=== PATIENT | male | born 1935 | race Caucasian/White ===

== ENCOUNTER 2021-05-08 18:17 | Emergency (ER) | payer OTHER, BC ==
[~2021-05-08] VITALS: Ht 177.8 cm; Wt 72.6 kg
[2021-05-08 19:22] LABS: URINE BILIRUBIN NEGATIVE (Negative); URINE BLOOD TRACE (Negative); URINE CLARITY SL CLOUDY; URINE COLOR YELLOW; URINE GLUCOSE-RANDOM* NEGATIVE (Negative); URINE KETONES NEGATIVE (Negative); URINE NITRITE-REFLEX NEGATIVE (Negative); URINE PROTEIN (DIPSTICK) NEGATIVE (Negative); URINE SPECIFIC GRAVITY >= 1.030 (1.005-1.035); URINE UROBILINOGEN 0.2 E.U./dl (0.2-1.0)
[2021-05-08 19:23] LABS: URINE LEUKOCYTES-REFLEX 2+ (Negative)
[2021-05-08 19:34] LABS: SQUAMOUS 0-3 Few /LPF (0-3)
[2021-05-08 19:35] LABS: MUCUS 4-6 Moderate strn/LPF (None Seen); URINE RBC 1-2 Rare /HPF (NONE SEEN); URINE WBC-REFLEX >25 Many /HPF (0-5)
[2021-05-08 20:00] LABS: HEMATOCRIT 22.8 % (42.0-52.0); HEMOGLOBIN 7.1 gm/dL (14.0-18.0); MCH 26.6 pg (26.0-34.0); MCHC 31.3 g/dL (28.0-37.0); MCV 84.8 fL (80.0-100.0); PLATELET COUNT 183 thou/uL (150-400); RBC 2.68 mil/uL (4.50-6.00); RDW 21.1 % (10.5-14.5)
[2021-05-08 20:15] LABS: CALCIUM 8.2 mg/dL (8.5-10.1); CREATININE 1.1 mg/dL (0.7-1.3); POTASSIUM 4.7 mmol/L (3.5-5.1)
[2021-05-08 20:22] LABS: ALBUMIN 2.8 g/dL (3.4-5.0); TOTAL BILIRUBIN 0.2 mg/dL (0.2-1.0); TOTAL PROTEIN 6.3 g/dL (6.4-8.2)
[2021-05-08 20:27] LABS: ABSOLUTE NEUTROPHILS 2.3 thou/uL (1.4-8.2)
[2021-05-08 20:30] LABS: ANISOCYTOSIS 2+; PLATELET ESTIMATE NORMAL; POIKILOCYTOSIS 1+
[2021-05-08] MEDS ORDERED: CEPHALEXIN500 MG PO (20:48)
[2021-05-08 20:59] VITALS: BP 147/51
--- NOTE | 2021-05-10 09:23 | EKG ---
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 05/10/21 0923 36 36 Gary Thrasher MD, FACC /EPI
== END 2021-05-08 21:10 | disposition home or self-care (01) ==
LOC: ER 18:17
PROVIDERS: Emergency Medicine
DX: N39.0 Urinary tract infection, site not specified (principal); Z20.822 Contact with and (suspected) exposure to COVID-19; R41.82 Altered mental status, unspecified; F11.20 Opioid dependence, uncomplicated

== ENCOUNTER 2021-05-10 15:46 | Emergency (ER) | payer OTHER, BC ==
[~2021-05-10] VITALS: Ht 177.8 cm; Wt 72.6 kg
[~2021-05-10 15:46] MED LIST: CEPHALEXIN500 MG PO
[2021-05-10 17:09] LABS: ABSOLUTE NEUTROPHILS 2.4 thou/uL (1.4-8.2); BASOPHILS 0.3 % (0.0-2.0); EOSINOPHILS 1.3 % (0.0-3.0); HEMATOCRIT 25.4 % (42.0-52.0); HEMOGLOBIN 7.8 gm/dL (14.0-18.0); LYMPHOCYTES 32.4 % (24.0-44.0); MCH 26.5 pg (26.0-34.0); MCHC 30.9 g/dL (28.0-37.0); MCV 85.6 fL (80.0-100.0); MONOCYTES 4.4 % (1.0-8.0); PLATELET COUNT 188 thou/uL (150-400); POLYS 61.6 % (36.0-66.0); RBC 2.97 mil/uL (4.50-6.00); RDW 21.1 % (10.5-14.5); WBC 3.9 thou/uL (4.0-11.0)
[2021-05-10 17:13] LABS: ANION GAP 7 mmol/L (7-16); BUN 13 mg/dL (7-18); CALCIUM 8.5 mg/dL (8.5-10.1); CHLORIDE 109 mmol/L (98-107); CO2 28 mmol/L (21-32); CREATININE 1.1 mg/dL (0.7-1.3); GLUCOSE 126 mg/dL (74-106); POTASSIUM 4.9 mmol/L (3.5-5.1); SODIUM 144 mmol/L (136-145)
[2021-05-10 17:23] LABS: SGOT 20 U/L (15-37); SGPT 26 U/L (16-63); TOTAL BILIRUBIN 0.3 mg/dL (0.2-1.0); TOTAL PROTEIN 6.6 g/dL (6.4-8.2); TROPONIN-I <0.06 ng/mL (<0.06)
[2021-05-10] MEDS ORDERED: METFORMIN HCL500 MG PO (18:19)
[2021-05-10] MEDS ORDERED: ALPRAZOLAM XR3 MG PO (18:19)
[2021-05-10] MEDS ORDERED: XARELTO2.5 MG PO (18:19)
[2021-05-10] MEDS ORDERED: SIMVASTATIN80 MG PO (18:20)
[2021-05-10] MEDS ORDERED: ARICEPT10 M1 PO (18:20)
[2021-05-10] MEDS ORDERED: NAMENDA 10 MG T10 MG PO (18:20)
[2021-05-10] MEDS ORDERED: TOPROL XL50 MG PO (18:20)
[2021-05-10] MEDS ORDERED: VITAMIN D325 MC5 PO (18:21)
[2021-05-10 18:29] LABS: URINE BILIRUBIN NEGATIVE (Negative); URINE BLOOD NEGATIVE (Negative); URINE CLARITY CLEAR; URINE COLOR YELLOW; URINE GLUCOSE-RANDOM* NEGATIVE (Negative); URINE KETONES NEGATIVE (Negative); URINE NITRITE-REFLEX NEGATIVE (Negative); URINE PROTEIN (DIPSTICK) NEGATIVE (Negative); URINE SPECIFIC GRAVITY 1.025 (1.005-1.035); URINE UROBILINOGEN 0.2 E.U./dl (0.2-1.0)
[2021-05-10 18:40] LABS: URINE LEUKOCYTES-REFLEX 1+ (Negative)
[2021-05-10 18:50] LABS: BACTERIA-REFLEX 1-9 Few /HPF (None Seen); CASTS None Seen /LPF (None Seen); CRYSTALS None Seen /LPF (None Seen); SQUAMOUS 0-3 Few /LPF (0-3); URINE RBC 1-2 Rare /HPF (NONE SEEN); URINE WBC-REFLEX 6-15 Few /HPF (0-5)
[2021-05-10 19:16] LABS: ANISOCYTOSIS 2+; PLATELET ESTIMATE NORMAL
[2021-05-10 20:07] VITALS: BP 132/46
--- NOTE | 2021-05-11 09:53 | EKG ---
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
== END 2021-05-10 20:08 | disposition admitted as inpatient to this hospital (09) ==
LOC: ER 15:46
PROVIDERS: Nurse Practitioner Family
DX: F32.9 Major depressive disorder, single episode, unspecified (principal); Z20.822 Contact with and (suspected) exposure to COVID-19; F03.91 Unspecified dementia, unspecified severity, with behavioral disturbance; Z79.899 Other long term (current) drug therapy; Z79.84 Long term (current) use of oral hypoglycemic drugs

== ENCOUNTER 2021-05-10 18:57 | Inpatient (IN) | payer OTHER, BC ==
[~2021-05-10] VITALS: Ht 180.3 cm; Wt 70.8 kg
[~2021-05-10 18:57] MED LIST changes: +ALPRAZOLAM XR3 MG PO; +ARICEPT10 M1 PO; +METFORMIN HCL500 MG PO; +NAMENDA 10 MG T10 MG PO; +SIMVASTATIN80 MG PO; +TOPROL XL50 MG PO; +VITAMIN D325 MC5 PO; +XARELTO2.5 MG PO
[2021-05-10 21:04] VITALS: BP 167/68
--- NOTE | 2021-05-11 04:28 | NUR ---
ADMISSION NOTE 05/10/212029 PATIENT ARRIVES TO THE UNIT VIA WHEELCHAIR FROM THE EMERGENCY DEPARTMENT. PATIENT AT THIS TIME IS CALM AND DRESSED APPROPRIATELY. PATIENT CONFUSED LOOKING FOR HIS AND ASKING IF HE CAN GO OUTSIDE. ORIENTED TO SELF ONLY. STAFF ORIENTED PATIENT TO THE SURROUNDINGS AND THAT HE WAS IN THE HOSPITAL. PATIENT EXHIBITS ANXIETY AND RAPID THOUGHTS. UNABLE TO RETAIN INFORMATION GIVEN TO HIM. REPETITIVELY ASKS THE SAME QUESTIONS. WHERE IS HIS ? DID THE GOVERNMENT BRING HIM HERE? CAN HE USE THE PHONE TO CALL HIS CONGRESSMAN. PATIENT PACED THE FLOOR FOR SOME TIME BEFORE FINALLY SITTING FOR VITAL SIGNS. PATIENT WAS CHANGED INTO SHIRT AND PANTS THAT ARE UNIT APPROPRIATE. UNABLE TO UNDERSTAND THAT HE WILL BE ASSESSED HERE BY A MEDICAL PROVIDER. PATIENT DOES DENY ANY HI/SI IDEATION. PT SKIN INTACT WITH NO OPEN AREAS. HE DOES HAVE SUPERFICIAL SCRATCH TO HIS R ARM AND R ASHRAF. WILL CONTINUE TO MONITOR FOR CHANGE IN PATIENT STATUS.
[2021-05-11 06:19] LABS: CHOLESTEROL 114 mg/dL (<200); HDL CHOLESTEROL 38 mg/dL (>40); LDL CHOLESTEROL 57 mg/dL (<100); TRIGLYCERIDE 98 mg/dL (<150); VLDL 20 mg/dL (<40)
[2021-05-11 06:20] LABS: SERUM ASSESSMENT Clear
[2021-05-11 09:35] VITALS: BP 149/60
--- NOTE | 2021-05-11 12:16 | NUR ---
UPON INITIAL ASSESSMENT THIS AM AT 0745 WAS AT DESK EVERY 2-3 MINUTES ASKING TO CALL HIS -BEGINS TO RAISE VOICE AND YELL AT STAFF WITH ATTEMPTS TO REDIRECT HAD BEEN TOLD SEVERAL TIMES THAT HE HAD ALREADY TALKED TO HER SEVERAL TIMES AND PER HER REQUEST NO ADDITIONAL PHONE CALLS TO HER TO ALLOW HER TO GET SOME SLEEP. SARCASTIC AND ARGUMENTATIVE WHEN ASKED TO GO SIT IN THE DAY ROOM "ARE YOU GOING TO CALL THE POLICE AND HAVE ME ARRESTED" FROM APPROX [phone] NOTED TO BECOME INCREASINGLY MORE [id number] ON EXIT DOORS AND ENTERING BEHIND NURSES STATION ATTEMPTING TO GRAB THE PHONE-YELLING OUT "[id number] KIDNAPPING" OFFERED AM MEDS INCLUDING PO PRN XANAX BUT HE REFUSES STATING "I DON'T KNOW WHAT THOSE ARE DO YOU"REFUSES TO TAKE AND STATES TO THIS NURSE WITH CLENCHED FIST "YOU HAD BETTER LET ME OUT OF HERE OR YOU WILL HAVE A BLACK EYE" MATHEUS BULLOCK CONTACTED AND O RECEIVED-[id number] GIVEN IM IN RIGHT DELTOID AT 0910-OFFERS MINIMAL RESISTANCE-HAS REMAINED IN ROOM REQUESTED BY STAFF
[2021-05-11 20:10] VITALS: BP 123/54
[2021-05-11 20:14] VITALS: BP 123/54
[2021-05-12 00:05] LABS: GLYCOHEMOGLOBIN (HGB A1C) 6.5 % (4.8-5.6)
--- NOTE | 2021-05-12 00:36 | NUR ---
PATIENT CARE WAS RESUMED AT 1900. HE IS ALERT AND CONFUSSED. HE AMBULATES AND ABLE TO VERBALIZED HIS CONCERN. LUNGS ARE CLEAR,BS ACTIVE X 4 QUAD. HE DENIES PAINS/SI/AVH/HI. HE TOOK HIS MEDS WITHOUT ANY CONCERN. CONTINENT OF BOWEL AND BLADDER. NO SKIN ISSUES NOTED THIS SHIFT. BED IS LOW, LOCKED AND ALARMED
[2021-05-12 09:17] VITALS: BP 162/47
--- NOTE | 2021-05-12 16:21 | NUR ---
SW completed assessment and tx plan. SW team will remain available while on this unit.
[2021-05-12 19:15] VITALS: BP 153/77
--- NOTE | 2021-05-12 19:48 | NUR ---
ANXIUOS FACIAL EXPRESSION,PACING AND AT DESK FREQUENTLY WITH REPETITIVE QUESTIONS. DIFFICULT TO REDIRECT WILL BECOME SARCASTIC OPPOSITIONAL WITH ATTEMPTS TO REDIRECT AWAY FROM DESKI.E "I WON'T BE LOCKED UP IF I GO SIT DOWN IN THAT ROOM THERE" "DO I HAVE TO BAD IN BAD SHAPE LIKE THESE GUYS BEFORE YOU LET ME OUT OF THIS PLACE" EXIT SEEKING RATTLING DOORS TO STAFF LOUNGE AND PEERS ROOMS. POUNDING ON SW OFFICE DOOR. XANAX 0.25MG GIVEN PO PRN X2 FOR ABOVE NOTED WITH GOOD RESULTS
--- NOTE | 2021-05-13 04:42 | NUR ---
05-12-21 CARE TRANSFERRED 1900 OBSERVED PT WALKING IN HALLWAY. LATER PT AAOX2, VSS, RR EVEN AND NONLABORED ON RA. PT DENIES PAIN AND SI/HI. PT PRESENTS ANXIOUS, BUT REMAINS CALM AND COOPERATIVE THROUGHOUT NURSING ASSESSMENT. DURING MEDICATION ADMIN PT HAD NO DIFFICULTIES TAKING MEDICATION WHOLE WITH WATER. LATER PT BED WAS ADJUSTED FOR COMFORT. PT WILL CONTINUE TO BE MONITOR PER [facility] PROTOCOL.
[2021-05-13 09:37] VITALS: BP 117/86
--- NOTE | 2021-05-13 11:16 | NUR ---
New admit to [facility] with dementia and behavioral disturbance. Hx DM. On metformin, A1C 6.5. Requires mech altered ground diet to no lower teeth. Healthy wt status, no wt loss indicated. Add carb control to current diet order. Otherwise low nutrition risk. Follow weekly wts and intake trends.
--- NOTE | 2021-05-13 16:15 | NUR ---
4:15PM - visited with pt at pt's request. Pt. expressed wanting to go "home to [facility]". The pt. has called multiple times today but does not remember calling her. The pt. states he has not seen a doctor but that he had met with a doctor in [place] that was nice. The pt. stated his car is on the street. The pt. then stated he needed his son or to pick him up as he was not feeling well. When asked what didn't feel well, the pt. stated he was sad and that he felt funny in his chest. The pt also stated no one pays attention to him because he is old. The pt. was reassured that he will receive attention and that if he needed anything to let someone know.
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
[2021-05-13 20:20] VITALS: BP 94/48
--- NOTE | 2021-05-14 06:17 | NUR ---
05-14-21 CARE TRANSFERRED 1899 OBSERVED PT WALKING IN HALLWAY. LATER PT AAOX1, VSS, RR EVEN AND NONLABORED, PT DENIES PAIN AND SI/HI. PT PRESENTS CONFUSED BUT IS EASILY REDIRECTED AND REORINENTAED, PT DID REMAIN COOPEATIVE DURING NURSING ASSESSMENT. LATER OBSERVED/HEARD PT CALLING OUT FOR HIS HOMERO, PT WAS REORIENATED AGAIN AND PT WAS RETURNED TO BED, BED WAS ADJUSTED FOR COMFORT. PT HAD NO DIFFIUCLTING TAKING MEDICATION WHOLE WITH WATER. LATER NOTED PT RESTING WITH EYES CLOSED. PT WILL CONTINUE TO BE MONITOR PER [facility] PROTOCOL.
[2021-05-14 09:36] VITALS: BP 144/74
--- NOTE | 2021-05-14 11:09 | NUR ---
1109 RESUMMED CARE FROM OVERNIGHT SHIFT THIS AM, PATIENT IN DAY ROOM WALKING AROUND. PATIENT IS ALERT TO SELF AND PLACE PATIENT CONSTANTLY ASKED WHEN HE IS LEAVING. PATIENT HAS NOT DISPLAYED ANY BEHAVIORS HE IS SOMETIMES CONFUSED. PATIENTS ABDOMEN SOFT BOWEL SOUNDS PATIENTS LUNGS CLEAR PATIENT DENIES SI/HI/AH/VH AT PRESENT. PATIENT PARTICPATES IN GROUPS WILL CONTINUE TO MONITOR PATIENT FOR SAFETY AND BEHAVIORS.
[2021-05-14 11:30] VITALS: BP 144/74
[2021-05-14 19:24] VITALS: BP 121/42
[2021-05-14 19:57] VITALS: BP 140/70
[2021-05-14 20:15] VITALS: BP 140/70
--- NOTE | 2021-05-15 02:18 | NUR ---
PATIENT WAS UP IN ROOM SLEEPING IN BED WHEN I ASSUMED CARE OF PATIENT AT 1900. HIS HOMERO CALLED TO SPEAK WITH HIM. I EXPLAINED I WOULD HAVE HIM CALL HER IF HE AWOKE BEFORE 10PM. PATIENT CAME OUT OF ROOM AND CALLED AROUND 2000 TONIGHT. HE IS A/0X1. HE WALKS WITH A STEADY GAIT. HE IS CONFUSED AND WANDERS ALOT. HE REPEATS THE SAME QUESTIONS. WHERE'S HOMERO? CAN I GO HOME TONIGHT? PATIENT HAD HS SNACK AND TOOK HS MEDS WHOLE WITHOUT INCIDENT. HE WENT BACK TO BED BUT WAS BACK UP AROUND 2300 WANDERING THE HALLS AND GOING INTO PATIENT'S ROOMS LOOKING FOR HOMERO. HELPED HIM BACK TO BED AND HE AWOKE AT 2AM AND WANDERED INTO A FEMALE PATIENTS ROOM WAKING HER UP. SHE YELLED FOR HIM TO GET OUT. PT WAS ASSISTED OUT OF ROOM. HE APOLOGIZED AND SAID HE WAS IN THE WRONG ROOM. HE WAS LOOKING FOR HIS GIRLFRIEND'S ROOM. PATIENT SAT IN THE DINING ROOM FOR ABOUT 20 MINUTES AND THEN WAS ASSISTED BACK TO HIS ROOM. HE WANTED TO KNOW WHICH ROOM HIS GIRLFRIEND WAS IN. I EXPLAINED SHE WAS NOT HERE AND THAT HOMERO WAS AT HOME. PATIENT GIVEN WATER TO DRINK AND ASSISTED HIM WITH HIS COVERS AND PATIENT IS RESTING IN BED AT THIS TIME. HE DENIES SI/HI/AVH. HE IS REDIRECTABLE. HE HAS BEEN CALM AND COOPERATIVE. WANDERS AND IS INTRUSIVE AT TIMES. BED IN LOW POSITION. PT IS NOT A FALL RISK. ROUTINE ROUNDS TO ASSESS SAFETY AND STATUS OF PT.
[2021-05-15 09:29] VITALS: BP 134/92
--- NOTE | 2021-05-15 14:50 | NUR ---
PATIENT WAS UP, AND OUT ON THE UNIT, HE AMBULATES WITH SLOW STEADY GAIT. PATIENT IS ALERT, FORGETFUL, AND PLEASANTLY CONFUSED, REDIRECTABLE THOUGH. PATIENT REQUESTED TO CALL FIRST THING THIS MORNING, CALLED, AND HE SPOKE WITH HER FOR ABOUT 20 MINUTES, HE CONTINUE TO COSTANTLY REQUEST FOR CALL . PATIENT TOOK MORNING MEDICATION WHOLE WITHOUT DIFFICULTY, HE IS EATING MEALS, AND DRINKING FLUID WELL. PATIENT DENIES SUICIDAL/HOMICIDAL IDEATION, HE DENIES DEPRESION, ANXIETY , AND PAIN. NO AGITATION OR AGGRESSIVE BEHAVIOR NOTED AT THIS TIME. PATIENT PARTICIPATES IN GROUP THERAPY. AFFECT IS FLAT/BLUNTED, MOOD IS DEPRESSED. NO SIGN OF ACUTE DISTRESS NOTED AT THIS TIME, WILL CONTINUE TO REDIRECT, AND MONITOR FOR SAFETY.
--- NOTE | 2021-05-15 16:00 | NUR ---
Dr. Torres and typewriter assembler had a telephonic family meeting with patient and son (Jaun). Dr. Torres reviewed prognosis and reccomendation for care after inpatient discharge. Family believes that they can provide care in the home by utilizing adult day care during the day and private duty for a certain # of hours at night. Dr. Torres was in agreement that they might be able to make this arrangement work, but warned that he may need a higher level of care. Family acknowledged that he may be correct. Family was accepting of medication plan and had no further questions.
[2021-05-15 19:45] VITALS: BP 106/55
[2021-05-15 20:20] VITALS: BP 106/55
[2021-05-16 09:30] VITALS: BP 111/88
[2021-05-16 15:45] VITALS: BP 121/70
--- NOTE | 2021-05-16 16:13 | NUR ---
Patient's called to let us know that she and her son are going to look at memory care facilities tomorrow. Also going to check out some adult day care facilities in their area. beginning to process that she may not be able to care for him at home.
--- NOTE | 2021-05-16 17:44 | NUR ---
Alert and orientated x 2-3. Denies SI/HI. Slightly anxious this AM concerned about his but once he spoke with her he was much calmer. Calm, compliant and cooperative. Breath sounds clear. Reg HR auscultated. Color pink with brisk capillary refill and palpable peripheral pulses. Independent with voiding. Active bowel sounds over soft, flat abdomen. Ambulates with regular, steady gait. called for update. No s/o distress.
[2021-05-16 19:50] VITALS: BP 153/82
[2021-05-16 20:10] VITALS: BP 153/82
--- NOTE | 2021-05-17 00:57 | NUR ---
PATIENT CARE WAS RESUMED AT 1900. HE IS ALERT AND ORIENTED. ABLULATES AND VERY CONFUSED. HE IS CONTINET OF BOWEL AND BLADDER. HE WAS CONCERNED ABOUT BUT HE CALMED DOWM BEFORE ASSESSMENT TIME. ABLE TO VERBALIZE NEEDS.DENIES PAINS /SI.AVH/HI. HE TOOK HIS MEDS WITHOUT ANY COONCERNS. BS ACTIVE X4 QUADS. LUNGS ARE CLEAR AND ABDOMEN IS SOFT NONE TENDER. PATIENT IS RESTING CALM IN BED. BED IS LOW, ALARMED AND LOCKED.. Q 12 MINITES CHECK IS ONGOING CONTINUE CARE
[2021-05-17 09:17] VITALS: BP 131/78
--- NOTE | 2021-05-17 09:46 | NUR ---
Alert and orientated to person, place. Unable to state time. Denies SI/HI. States she did not sleep at all last night. Denies pain and refuses lidocaine patch today. Breath sounds clear. Reg HR auscultated. Color pink with brisk capillary refill and palpable peripheral pulses. Yellow urine per toilet. Active bowel sounds over soft, rounded abdomen. States last BM was 3 days ago. Ulcer to R heel cleaned with NS and betadine applied. Ambulating with regular, steady gait. Calm and compliant with meds. Currently speaking with Dr. Torres. Hyperglycemic over past 24 hrs 178-311. Dr. Prasad notified, states he will speak to Dr. Torres r/t discharge orders. Report called to [facility] Benedict, spoke with Jatin Shields. Also spoke with Chioma LIN via phone, agrees with transfer.
--- NOTE | 2021-05-17 12:01 | NUR ---
RT Progress Note- Ganga' has been present in the milieu each day during his admission. He wanders the unit during unscheduled time, often asking to use the telephone to call his . He is easily engaged in conversation and redirects well during these times. He has been present in most programming on the unit and requires direct cueing to engage as he easily gets off task and reverts back to requesting the telephone or a ride somewhere. RT team will continue to engage patient in unit programming
--- NOTE | 2021-05-17 13:13 | NUR ---
Alert and orientated to name only. Denies SI/HI. Frequent requests to find transportation, wants to leave, notify parents to come get him. States he has rib pain on L side when he presses on it. Decreased from 5-1 with tylenol. Breath sounds clear. Reg HR auscultated. Color pink with brisk capillary refill and palpable peripheral pulses. Active bowel sounds over soft, rounded abdomen. Yellow urine per toilet. Currently in group. Wants to call after group.
[2021-05-17 20:20] VITALS: BP 132/97
[2021-05-17 21:38] VITALS: BP 132/97
--- NOTE | 2021-05-17 23:46 | NUR ---
Pt is ambulatory ad josee, Alert to self, very pleasant, wants to go home with spouse, constantly worries that spouse doesn't know where he is. Pt did talk with spouse on the phone this evening. Attempt to get pt to lay down he did for about 30 min and then was back up and he decided he wanted to sleep in dayroom. This nurse talked with pt for awhile. He is from [place] in [facility], he likes to fish and his eyes lit up talking about fishing and his hometown. Denies SI/HI/AH/VH, easily redirected. HRR, Lungs clear, Abd soft non tender. will continue to monitor through out shift.
[2021-05-18 10:48] VITALS: BP 132/97
[2021-05-18 12:29] VITALS: BP 121/63
[2021-05-18 19:40] VITALS: BP 135/92
--- NOTE | 2021-05-19 05:19 | NUR ---
05-18-21 CARE TRANSFERRED 0 OBSERVED PT SITTING IN DAY ROOM ON COUCH SOCIALIZING WITH PEERS. LATER PT AAOX1, VSS, RR EVEN AND NONLABORED ON RA. PT DENIES SI/HI AND PAIN. PT MAIN CONCERN IS FOR HIS HOMERO AND GETTING BACK HOME TO HOMERO. PT PRESENTS CONFUSED BUT REMAIN CALM AND COOPEATIVE THROUGHOUT NURSING ASSESSMENT. PT IS EASILY REORIENTATED TO PLACE. DURING MEDICATION ADMIN PT HAD NO DIFFICULTIES TAKING MEDICATION WHOLE WITH WATER. PT WILL CONTINUE TO BE MONITOR PER [facility] PROTOCOL.
[2021-05-19 09:42] VITALS: BP 110/56
--- NOTE | 2021-05-19 12:28 | NUR ---
Phone call to Mrs. Paredes. Mrs. Paredes and her son have explored [facility] for the pt. and really like it. Mrs. Paredes states [facility] is close to the home and also has a Memory Care facility should the pt. need it. In addition to this, Mrs. Paredes is looking into home health for the pt, a half day, 3 days a week. Mrs. Paredes is open to increasing that time. Mrs. Paredes asked if that was reasonable in caring for the pt. The administrator social welfare expressed concern with the level of supervision the pt will require. The administrator social welfare also expressed the need for Mrs. Paredes to ensure that she is taking care of herself in the process and realistic of what she is able to provide as it would not be beneficial for her or the pt. for her to not be functioninig at her best.
--- NOTE | 2021-05-19 12:51 | NUR ---
PATIENT CARE ASSUMED 0700 - PATIENT ALERT AND ORIENTED 1-2. CALM AND COOPERATIVE. RESPONSIVE TO QUESTIONS. NO PAIN OR DISCOMFORT WHEN ASSESSED. HEART RATE STRONG AND STEADY AND LUNGS CLEAR ON AUSCULTATION. PATIENT AMBULATORY - MAKES NEEDS KNOWN. SPOKE WITH HOMERO TO DAY - CONVERSATION WENT WELL. APPETITE GOOD - MEDICATION COMPLIANT. EASILY REDIRECTED - UNSTEADY ON FEET THIS MORNING. STATED WAS NOT SURE HIS BALANCE WAS SO OFF. WILL CONTINUE TO MONITOR PATIENT FOR SAFETY AND ADDRESS ANY CONCERNS OR CHANGES IN BEHAVIOR NEEDED.
[2021-05-19 20:12] VITALS: BP 132/47
[2021-05-19 21:00] VITALS: BP 126/58
--- NOTE | 2021-05-20 04:57 | NUR ---
05-19-21 CARE TRANSFERRED 0 OBSERVED PT SITTING IN DAY ROOM. LATER PT AAOX1, VSS, RR EVEN AND NONLABORED ON RA. PT DENIES SI/HI AND PAIN. PT PRESENTS PLESANTLY CONFUSED, CALM AND COOPERATIVE. PT REPORTS BEING CONCERNED ABOUT WHERE HOMERO HIS IS. PT IS EASILY REORIENTATED TO PLACE AND SITUATION, BUT OFTEN WILL ASK AGAIN ABOUT HIS . ASSISTED PT WILL CALL , AFTER PHONE CALL PT WAS HAPPY AND BED WAS ADJUSTED FOR COMFORT. DURING MEDICATION ADMIN PT HAD NO DIFFICULTIES WHOLE WITH WATER. LATER NOTED PT RESTING WITH EYES CLOSED, RIGHT SIDE LYING. PT WILL CONTINUE TO BE MONITOR PER [facility] ROTOCOL.
[2021-05-20 09:38] VITALS: BP 104/55
--- NOTE | 2021-05-20 09:59 | NUR ---
Followup: remains on [facility] unit. Tolerating diet well with 100% consumption of most meals. Wt stable 156-160 lb. BG well controlled. Low nutrition risk
--- NOTE | 2021-05-20 15:06 | NUR ---
HAS BEEN CONFUSED YET REDIECTABLE TODAY. NEEDS STEP BY STEP DIRECTION FOR EVEN THE MOST BASIC OF ACTIVITIES I.E. STANDING UP FROM SITTING POSITION... ORIENTED TO NAME ONLY-COMPLIENT WITH REDIRECT/SUPPORT FROM NURSING STAFF
[2021-05-20 20:28] VITALS: BP 126/31
[2021-05-20 20:45] VITALS: BP 124/58
--- NOTE | 2021-05-21 05:19 | NUR ---
05-20-21 CARE TRANSFERRED 1899. LATER PT AAOX2, VSS, RR EVEN AND NONLABORED ON RA, PT DENIES SI/HI AND PAIN. PT PRESENTS PLESANTLY CONFUSED OFTEN FORGETTING WHERE HE IS, BUT EASILY REORIENTATED AND COOPERATIVE. PT MAIN CONCERN IS FOR HIS HOMERO. PT HAS REMAINED CALM AND COOPERATIVE, NEEDS MINIMUM AMOUNT OF HELP WITH CARES. PT HAS CONSISTANTLY BEEN CONTINENT, HOWEVER UNSURE OF HIS LBM. DURING MEDICATION ADMIN PT HAD NO DIFFICULTIE TAKING MEDICATION WHOLE WITH WATER. PT DID ASK WHERE IS IS? ONCE AGAIN PT WAS EASILY REORINTATED AND CALM AND COOPERATIVE. PT WILL CONTINUE TO BE MONITOR PER [facility] PROTOCOL.
[2021-05-21 08:02] VITALS: BP 136/66
[2021-05-21 20:15] VITALS: BP 126/77
[2021-05-21 20:39] VITALS: BP 126/77
--- NOTE | 2021-05-22 04:23 | NUR ---
PATIENT CARE WAS RESUMED AT 1900. HE IS ALERT AND OREINTED TO SELF. AMBULATES AND ABLE TO VERABLIZE CONCERNS. HE DENIES PAINS/SI/AVH/HI. HE IS CONTINIET OF BOWEL AND BLADDER. LUNGS ARE CLEAR, BS ACTIVE X4 QUADS. ABD IS SOFT FLAT AND NONE TENDER. HE TOOK HIS MEDS WHOLE. HAS A NONE SKID SOCKS, YELLOW TOP ON. BED IS LOW, LOCKED.PATIENT CONTINUE TO TALK ABOUT GOING HOME AND GETTING OUT OF HERE. CONTINUE CARE AND MONITOR.
[2021-05-22] MEDS ORDERED: DIVALPROEX SOD500 M1 PO (08:54)
[2021-05-22] MEDS ORDERED: TRAZODONE HCL100 MG PO (08:55)
[2021-05-22 09:47] VITALS: BP 126/42
[2021-05-22 10:31] VITALS: BP 126/42
[2021-05-22 10:46] VITALS: BP 126/42
--- NOTE | 2021-05-22 13:02 | NUR ---
Assumed pt care at 0700. pt was alert and oriented to person. Assessments completed, vss. Denies SI/HI, denies pain. Calm and cooperative with care. Took meds whole, no difficulty noted. AMbulates with a steady gait. No sign of acute distress noted upon assessments. 1115 Pt was DC home to , with his belongings, D/C instrutions . D/C Instrution was given to (DPOA). Pt was transported via wheel chair to entrace exit.
--- NOTE | 2021-05-22 14:05 | NUR ---
Patient d/c'd with no issues. F/U appt. with PCP on 05-25 @ 8018. Waiting from Dr. Fernandez's office for f/u psychiatry appt. Will notify when this is accomplished. Info faxed to PCP.
--- NOTE | 2021-05-23 11:29 | NUR ---
Today received an appointment for psychiatric follow up with Dr. Caitlin Fernandez MD for psychiatry. Appt. scheduled for 06-05-21 @ 12:30. Called Kenisha and left VM
--- NOTE | 2021-05-23 20:00 | D ---
[facility] [place] [address] DISCHARGE SUMMARY Name: DAYDAY FITZGERALD Room #: 527A-A [facility] IN M.R.#: [id number] Admission: 05/10/21 Attend Phys: Tavon Torres DO Discharge: 05/22/21 Date of : 39 Report #: [id number] THIS REPORT FOR: cc: Jalil Ryan Jr., MD, Jr., Samuel D. MD Kerstein, Andrew H. DO ~ DATE OF SERVICE: 05/22/2021 INPATIENT PSYCHIATRIC DISCHARGE SUMMARY ATTENDING PSYCHIATRIST: Tavon Torres DO SCREEN TENDER: Obi Dallas M.D. DISCHARGE DIAGNOSES: Major neurocognitive disorder, likely due to Alzheimer's disease with behavioral disturbance. Medical comorbidities are as follows, urinary tract infection, treated with Keflex; diabetes mellitus, on metformin; hypertension, on metoprolol; acute myeloid leukemia in remission; coronary artery disease, status post stent; peripheral vascular disease, status post stent; gastrointestinal prophylaxis. The patient is discharging to his home where he lives with his . He will get adult daycare through the medicine facility. The patient requires 24/7 care and supervision with the agrees to provide. The patient's discharge diet is 1800 calorie diabetic diet. Aftercare for this patient has been arranged as follows; followup appointments primary care physician is 05/25/2021 at 11:45 waiting for her appointment with Dr. Caitlin Fernandez, Psychiatrist at [facility]. DISCHARGE MEDICATIONS: Metformin 500 mg oral daily for diabetes mellitus, Xarelto 2.5 mg oral twice daily for anticoagulation due to atrial fibrillation, memantine 10 mg oral twice daily for cognitive enhancement, metoprolol succinate 50 mg 1 tablet oral daily for rate control and hypertension, simvastatin 10 mg oral daily for hyperlipidemia, cholecalciferol 25 mcg oral daily for supplementation, Depakote 500 mg oral twice daily for mood stabilization, trazodone 100 mg oral at bedtime p.r.n. for sleep. The patient should return to the ER for increased swelling, edema and trouble breathing. No suicidal or homicidal ideations and his was provided with crisis suicide hotline information. Laboratories this admission, Depakote level on 05/21/2021 was 39. CBC from 05/10/2021 are H and H 7.8 and 25.4, white count 3.9, platelet count 188. Chemistry: Sodium 144, potassium 4.9, chloride 109, bicarbonate 28, anion gap 7, BUN 15, creatinine 1.1, estimated GFR 64. A1c 6.5, calcium 8.5, total bilirubin 0.3, AST 20, ALT 26, alkaline phosphatase 118. Troponin less than 0.06, total protein 6.6, albumin 3.0. Triglycerides 98. Cholesterol 114, LDL 57, HDL 38. TSH 0.922. [address] [address] DISCHARGE SUMMARY Name: DAYDAY FITZGERALD Room #: 527A-A DIS IN M.R.#: [id number] Admission: 05/10/21 Attend Phys: Tavon Torres DO Discharge: 05/22/21 Date of : 37 Report #: [id number] Urinalysis, there was some positives and it showed no growth, but patient is treated with Keflex. COVID-19 Alejandre test was negative on 05/13/2021. REASON FOR ADMISSION: An 85-year-old male with history of dementia, brought to the [facility]al [facility] unit. This was a second visit, he had been brought in a couple of days prior, sent on home for unknown reasons. He believes he is here for a job interview. reports the patient has become more confused in the last week or so. The patient will become more anxious, confused, agitated and unable to redirect him. Recently lost their son, becomes easily verbally aggressive. He sees psychiatrist, Dr. Silvestre also being treated for acute myeloid leukemia. HOSPITAL COURSE: The patient was admitted to Geriatric Psychiatry Unit. The patient had pretty positive response to treatment. Depakote was initiated, titrated to 500 mg twice a day. other home meds were continued. Restraints were not required for this patient. Long-term care placement was recommended for the patient- wanted to go with adult day care only. On the day of discharge, the patient vital signs temperature 36.6, pulse 80, respirations 18, BP 126/42. BMI is 21.8. MENTAL STATUS EXAMINATION: Frail, ill, thin, male, wearing glasses and street clothes. Well-developed, somewhat ill-appearing male. Attention, concentration limited. Speech normal in rate. Thought process: Linear and goal oriented. mood/affect- happy, congruent, euthymic Thought content focused on discharge at bedside. He denied auditory or visual type hallucinations. Insight and judgment were limited. Mood and affect were congruent, euthymic. Fund of knowledge is diminished. PROGNOSIS: Guarded given age of 85 having a neurodegenerative disorder. <ELECTRONICALLY SIGNED> By: Tavon Torres DO 05/23/211999 23 43 Tavon Torres DO /nt
== END 2021-05-22 11:15 | disposition home or self-care (01) | DRG 57 ==
LOC: SBH 18:57
PROVIDERS: Nurse Practitioner Family; ADMIT Psychiatry & Neurology Psychiatry; ATTEND Psychiatry & Neurology Psychiatry
DX: G30.9 Alzheimer's disease, unspecified (principal); F02.81 Dementia in other diseases classified elsewhere, unspecified severity, with behavioral disturbance; N39.0 Urinary tract infection, site not specified; C92.00 Acute myeloblastic leukemia, not having achieved remission; E11.51 Type 2 diabetes mellitus with diabetic peripheral angiopathy without gangrene; E78.5 Hyperlipidemia, unspecified; I10 Essential (primary) hypertension; F01.50 Vascular dementia, unspecified severity, without behavioral disturbance, psychotic disturbance, mood disturbance, and anxiety; I25.10 Atherosclerotic heart disease of native coronary artery without angina pectoris; I25.2 Old myocardial infarction; Z95.5 Presence of coronary angioplasty implant and graft; Z87.891 Personal history of nicotine dependence; Z79.899 Other long term (current) drug therapy
CPT/HCPCS: 10880

== ENCOUNTER 2021-08-24 09:08 | Inpatient (IN) | payer OTHER, BC ==
[~2021-08-24] VITALS: Ht 177.8 cm; Wt 65.3 kg
--- NOTE | ~2021-08-24 | EMS ---
[address] [address] EMS Patient Care Report Name: DAYDAY FITZGERALD Room #: 203-P ADM IN M.R.#: [id number] Admission: 08/24/21 Attend Phys: Lisa Garza MD Discharge: Date of : 37 Report #: [id number] THIS REPORT FOR: //name// Report Transmitted: 08/26/2021 15:14 EMS Care Summary [place], [place]/[facility] Incident [id number] @ 08/24/2021 08:27 Incident Location [address] [id number] Patient DAYDAY FITZGERALD Male, 85 Years 1935 Patient Address [address] [place] [address] Patient History Dementia,Leukemia, Patient Allergies No known allergies, Patient Medications Donepezil, Depakote, Xarelto, Simvastatin, Trazodone, Toprol, Flomax, Metformin, Chief Complaint FEVER Disposition Transported No Lights/[place] Dispatch Reason Sick Person Transported To [facility] Narrative 28 ARRIVES TO FIND 85 Y/O M PT, WHO, PER FAMILY, IS ACTING MORE CONFUSED THAN NORMAL AND IS ALSO RUNNING A FEVER. ASSESSMENTS AND TREATMENTS NOTED. PT MOVED TO COT VIA EXTREMITY LIFT. PT MOVED TO AMBULANCE. PT TRANSPORTED. [address] [address] EMS Patient Care Report Name: DAYDAY FITZGERALD Room #: 203-P ADM IN ..#: [id number] Admission: 08/24/21 Attend Phys: Lisa Garza MD Discharge: Date of : 37 Report #: [id number] ARRIVES AT DESTINATION. PT MOVED TO ROOM IN ED. PT MOVED TO BED IN ROOM VIA DRAWSHEET METHOD. PT CARE TRANSFERRED. M528 RETURNS TO SERVICE. Initial Vitals @08:53P: 89,R: 16,BP: 117/49,Pain: 0/10,GCS: 14,CO: 12,SpO2: 95,Revised Trauma: 12, @08:57P: 86,R: 16,BP: 123/62,Pain: 0/10,GCS: 14,Temp: 99.8F,Glucose: 150,CO: 11,SpO2: 95,Revised Trauma: 12, Assessments @08:38MENTAL:Confused,Person Oriented,Place Oriented,SKIN:Hot,HEENT:LUNG SOUNDS:ABDOMEN:PELVIS//GI:EXTREMITIES:PULSE:NEURO:@08:48MENTAL:Place Oriented,Person Oriented,Confused,SKIN:Hot,HEENT:Head/Face: No Abnormalities,Eyes: No Abnormalities,Neck/Airway: No Abnormalities,LUNG SOUNDS:General: No Abnormalities,Left Upper: No Abnormalities,Right Upper: No Abnormalities,Left Lower: No Abnormalities,Right Lower: No Abnormalities,ABDOMEN:General: No Abnormalities,Left Upper: No Abnormalities,Right Upper: No Abnormalities,Left Lower: No Abnormalities,Right Lower: No Abnormalities,PELVIS//GI:No Abnormalities,EXTREMITIES:Left Arm: No Abnormalities,Right Arm: No Abnormalities,Left Leg: No Abnormalities,Right Leg: No Abnormalities,PULSE:NEURO:No Abnormalities, Impression Fever Procedures @08:53 3-Lead ECG Response: UnchangedSucceeded @08:38 ALS Assessment Response: UnchangedSucceeded @08:53 IV Therapy - Saline Lock 0cc (20 ga) Site: Forearm-Left Response: UnchangedSucceeded Timeline 08:24,Call Received 08:24,Dispatch Notified 08:27,Dispatched 08:27,En Route 08:36,On Scene 08:38,At Patient 08:38,ALS Assessment,Response: UnchangedSucceeded, 08:53,3-Lead ECG,Response: UnchangedSucceeded, 08:53,IV Therapy - Saline Lock 0cc 20 ga Site: Forearm-Left,Response: UnchangedSucceeded, 08:53,BP: 117/49 M,PULSE: 89,RR: 16 R,SPO2: 95 Ox,ETCO2: ,BG: ,PAIN: 0,GCS: 14, 08:57,BP: 123/62 M,PULSE: 86,RR: 16 R,SPO2: 95 Ox,ETCO2: ,B,PAIN: 0,GCS: 14, [facility] [address] [place] [address] EMS Patient Care Report Name: DAYDAY FITZGERALD Room #: 203-P ADM IN M.R.#: [id number] Admission: 08/24/21 Attend Phys: Lisa Garza MD Discharge: Date of : 37 Report #: [id number] 08:58,Depart Scene 09:03,At Destination 09:12,Call Closed Disclaimer v1.1 Copyright 2020 Zachary Prell This EMS Care Summary contains data elements from the applicable legal record (which may be displayed differently). It is designed to provide pertinent information for the following purposes: continuity of care, clinical quality, and state data reporting. The complete legal record is available to ED staff and administrators of the receiving hospital in [employer]'s Patient Tracker. All data is provided "as is."
[~2021-08-24 09:08] MED LIST changes: +DIVALPROEX SOD500 M1 PO; +TRAZODONE HCL100 MG PO
[2021-08-24 09:09] VITALS: BP 100/35
[2021-08-24 09:40] LABS: URINE BILIRUBIN NEGATIVE (Negative); URINE BLOOD TRACE (Negative); URINE CLARITY CLEAR; URINE COLOR YELLOW; URINE GLUCOSE-RANDOM* NEGATIVE (Negative); URINE KETONES TRACE (Negative); URINE LEUKOCYTES-REFLEX TRACE (Negative); URINE NITRITE-REFLEX NEGATIVE (Negative); URINE PROTEIN (DIPSTICK) 1+ (Negative)
[2021-08-24 09:42] LABS: HEMOGLOBIN 8.2 gm/dL (14.0-18.0); MCH 30.6 pg (26.0-34.0)
[2021-08-24 09:44] LABS: HEMATOCRIT 25.8 % (42.0-52.0); MCHC 31.8 g/dL (28.0-37.0); MCV 96.3 fL (80.0-100.0); PLATELET COUNT 59 thou/uL (150-400); RBC 2.68 mil/uL (4.50-6.00); RDW 18.4 % (10.5-14.5)
[2021-08-24 09:50] LABS: CALCIUM 8.2 mg/dL (8.5-10.1); CREATININE 0.9 mg/dL (0.7-1.3); POTASSIUM 4.5 mmol/L (3.5-5.1)
[2021-08-24 09:55] LABS: INR 1.08; PROTIME 11.7 Seconds (10.5-12.1)
--- NOTE | 2021-08-24 09:57 | EKG ---
[address] [place] [address] ELECTROCARDIOGRAM REPORT Name: DAYDAY FITZGERALD Room #: REG DELPHINE Maloney#: [id number] Admission: 08/24/21 Attend Phys: Discharge: Date of : 37 Report #: [id number] [facility] ED Test Date: 2021-08-24 Test Time: 09:43:06 Pat Name: DAYDAY FITZGERALD Department: Room: Gender: M [place]: taylor : 1935 Requested By: Jaun Ferrell Order Number: [id number] MD: Yaya Lynn Measurements Intervals [place] Rate: 84 P: 97 VA: 70 QRS: 16 QRSD: 104 T: 96 QT: 404 QTc: 478 Interpretive Statements Sinus rhythm Short VA interval Nonspecific repol abnormality, diffuse leads Compared to ECG 05/10/2021 17:00:10 Atrial premature complex(es) now present Short VA interval now present Early repolarization now present Electronically Signed On 08-24-2021 9:57:30 SHOW DOG TRAINER by Yaya Lynn [email or web address] <ELECTRONICALLY SIGNED> By: Yaya Lynn MD 08/24/21 0957 0943 0943 Yaya Lynn MD /FELIPA
[2021-08-24 09:59] LABS: ALBUMIN 2.6 g/dL (3.4-5.0); TOTAL BILIRUBIN 0.5 mg/dL (0.2-1.0); TOTAL PROTEIN 5.9 g/dL (6.4-8.2)
[2021-08-24 10:21] LABS: BACTERIA-REFLEX 1-9 Few /HPF (None Seen); CASTS None Seen /LPF (None Seen); CRYSTALS None Seen /LPF (None Seen); SQUAMOUS 0-3 Few /LPF (0-3); URINE RBC 1-2 Rare /HPF (NONE SEEN); URINE WBC-REFLEX 6-15 Few /HPF (0-5)
[2021-08-24 10:47] LABS: ABSOLUTE NEUTROPHILS 0.3 thou/uL (1.4-8.2); ANISOCYTOSIS 2+; ATYPICAL LYMPHS 5 %; HYPOCHROMASIA 2+; PLATELET ESTIMATE DECREASED
[2021-08-24] MEDS ORDERED: DIVALPROEX SOD500 M1 PO (12:54)
[2021-08-24] MEDS ORDERED: FLOMAX0.4 MG PO (12:55)
[2021-08-24] MEDS ORDERED: VITAMIN B-121000 MC2 SUBLING (12:56)
[2021-08-24] MEDS ORDERED: CENTRUM SILVER1 EACH PO (12:57)
[2021-08-24] MEDS ORDERED: AZACITIDINE PO (12:59)
[2021-08-24 15:06] VITALS: BP 120/28
--- NOTE | 2021-08-24 15:13 | NUR ---
PT'S HOMERO CALLED AT THIS TIME TO UPDATE THAT PT IS NOW IN 203 AND THAT INPT NURSE WOULD LIKE HER TO COME TO THE HOSPITAL
[2021-08-24 15:33] VITALS: BP 129/53
[2021-08-24] MEDS ORDERED: METFORMIN HCL500 M3 PO (16:49)
[2021-08-24 19:16] VITALS: BP 125/53
[2021-08-25 04:46] LABS: HEMOGLOBIN 7.2 gm/dL (14.0-18.0)
[2021-08-25 04:49] LABS: HEMATOCRIT 22.4 % (42.0-52.0); MCH 31.1 pg (26.0-34.0); MCHC 32.1 g/dL (28.0-37.0); PLATELET COUNT 44 thou/uL (150-400); RBC 2.31 mil/uL (4.50-6.00); RDW 18.4 % (10.5-14.5)
[2021-08-25 04:51] LABS: WBC 1.1 thou/uL (4.0-11.0)
[2021-08-25 05:07] VITALS: BP 126/59
[2021-08-25 06:10] LABS: ABSOLUTE NEUTROPHILS 0.3 thou/uL (1.4-8.2); ANISOCYTOSIS 2+; PLATELET ESTIMATE DECREASED
[2021-08-25 06:11] LABS: ALBUMIN 2.2 g/dL (3.4-5.0); CREATININE 0.8 mg/dL (0.7-1.3); HYPOCHROMASIA 1+; PHOSPHORUS 3.4 mg/dL (2.5-4.9); POLYCHROMASIA 1+; POTASSIUM 4.3 mmol/L (3.5-5.1); TOTAL BILIRUBIN 0.5 mg/dL (0.2-1.0); TOTAL PROTEIN 5.4 g/dL (6.4-8.2)
[2021-08-25 07:24] VITALS: BP 121/67
[2021-08-25 11:50] VITALS: BP 129/55
--- NOTE | 2021-08-25 14:26 | HC ---
[facility] [place] [address] CONSULTATION Name: DAYDAY FITZGERALD Room #: 203-P ADM IN M.R.#: [id number] Admission: 08/24/21 Attend Phys: Lisa Garza MD Discharge: Date of : 37 Report #: [id number] THIS REPORT FOR: cc: Shelby Guzman,Jalil Ryan Jr.,Medardo Arguelles MD, MD ~ DATE OF SERVICE: 08/24/2021 INFECTIOUS DISEASE CONSULTATION REASON FOR CONSULTATION: I was asked to evaluate concerning neutropenic fever. HISTORY OF PRESENT ILLNESS: The patient was an 85-year-old with longstanding diagnosis of AML, diagnosed in 1999, who has now been in remission, on chronic treatment with azacitidine. Also, has underlying diabetes and coronary artery disease. In the last 24 hours, he has had some polyuria along with confusion, which has increased from his baseline dementia. Then developed fever up to 103 degrees with mild chills. Because of such and a history of neutropenia, he was brought into the Emergency Room for further evaluation. No hypoxia. Mental status improved some with hydration. He has had a small amount of urine output. No nausea, vomiting or diarrhea. He has had no cough or sputum production. He denies any chest pain or palpitations. He has had no rash, decubiti or arthritis symptoms. Denies headache. There has been no seizure activity. No report of any adenopathy. He has had no trauma. He did fall; however, when he got up to go the bathroom, which was recorded as he slid to the floor. There was no evidence of trauma with this. He has been COVID vaccinated. No history of HIV or tuberculosis. He has had no travel. No other exposures known. REVIEW OF SYSTEMS: A 14-point review of system was negative other than what has been described above. ALLERGIES: None known. MEDICATIONS: As noted on his MAR, which were reviewed. PAST MEDICAL HISTORY: Alzheimer's dementia, AML, hypertension, hyperlipidemia, coronary artery disease, diabetes. FAMILY HISTORY: Coronary artery disease and stroke. SOCIAL HISTORY: Past smoker, no significant alcohol intake. Lives with his . PHYSICAL EXAMINATION: [facility] [address] [place] [address] CONSULTATION Name: DAYDAY FITZGERALD Room #: 203-P [facility] IN M.R.#: [id number] Admission: 08/24/21 Attend Phys: Lisa Garza MD Discharge: Date of : 37 Report #: [id number] GENERAL: Afebrile and hemodynamically stable. He was sitting up in bed, eating his dinner. He was alert and cooperative, although he was confused. He did not know where he was, he did not know the day, the year or the president. He was conversant and did follow commands appropriately. He was able to sit up in bed on his own. He is able to roll over in bed on his own. SKIN: Without rash or decubitus. No palpable adenopathy. HEENT: Eyes without scleral icterus or conjunctivitis. Mouth without mucositis. NECK: Supple with no thyromegaly or mass. LUNGS: Few crackles in the right base posteriorly. HEART: Regular, without appreciable murmur, gallop or rub. ABDOMEN: Soft and nontender, without hepatosplenomegaly or mass. GENITALIA: External genitalia without mass or lesion. Perianal examination was without lesion, mass or tenderness. RECTAL: Did not perform rectal examination due to his pancytopenia. EXTREMITIES: Without clubbing, cyanosis or edema. NEUROLOGIC: Cranial nerves intact. Strength in the upper and lower extremities was symmetric and within normal limits. LABORATORY DATA: Reviewed. MICROBIOLOGY: Reviewed. IMAGING: Chest x-ray reviewed. IMPRESSION: An 85-year-old with, 1. Neutropenic fever, bilateral pulmonary infiltrates. He is not hypoxic. 2. Acute myeloid leukemia, on azacitidine, with pancytopenia. 3. Underlying dementia, which has worsened secondary to the above. 4. Coronary artery disease. 5. Diabetes. 6. Hypertension. RECOMMENDATION: We will continue broad antibiotic coverage and obtain cultures, urine antigens and viral PCR studies. Have Oncology followup and hold further chemotherapy at this point. We will not give cranial site stimulator at this point unless Oncology feels it appropriate. We will continue IV fluid resuscitation. I have discussed with nursing staff regarding plan of care. <ELECTRONICALLY SIGNED> By: Medardo Pimentel MD 08/25/21 1426 1712 12 Medardo Pimentel MD /nt
[2021-08-25 16:03] VITALS: BP 120/55
--- NOTE | 2021-08-25 18:11 | NUR ---
Pt was pleasant and cooperative throughout shift. VS were stable and pt was aferible throughtout shift. Pt is alert and oriented to self but is forgetful and easily confused. Pt had some blood tinged urine - not a new finding - lab results showed trace blood in urine. WBC was 1.1 so pt was given a one time dose of neupogen and CBC w/diff scheduled for 4am 08/26/21. and son visited with pt throughout shift.
[2021-08-25 23:23] VITALS: BP 138/65
--- NOTE | 2021-08-26 03:08 | NUR ---
UPON SHIFT REPORT, PT AWAKE REPORTING 10/10 RECTAL PAIN, IV TO LEFT FOREARM NOTED TO BE FIELD STICK. ATTEMPTED TO PLACE ANOTHER IV, UNABLE TO ADVANCE CATHETER, WILL ATTEMPT AT LATER TIME. UPON SHIFT ASSESSMENT, PT SLEEPING, AROUSING EASILY TO VERBAL AND TACTILE STIMULATION, NOTABLY HARD OF HEARING. PT AOX2, TO PERSON AND SITUATION, OTHERWISE FORGETFUL AND CONFUSED. PT DENIES PAIN AND SOB WHILE ON ROOM AIR. PT TOLERATING PO INTAKE OF FLUIDS AND MECHANICAL ALTERED CHOPPED DIET WITHOUT ISSUE. PT WITHOUT NAUSEA OR EMESIS. PT VOIDING PER URINAL, OTHERWISE INCONTINENT. PT RESTING IN BED THROUGHOUT SHIFT, NOTED TO SHIFT INDEPENDENTLY. SENSATION INTACT, CAPILLARY REFILL LESS THAN 3SEC, PERIPHERAL PULSES PALPABLE IN ALL EXTREMITIES. PT ENCOURAGED TO NOTIFY STAFF FOR ALL NEEDS, CALL LIGHT WITHIN REACH, BED ALARM ON, BED LOCKED IN LOWEST POSITION, ROOM REMAINS NEAR NURSES STATION, PT MAINTAINED ON NEUTROPENIC PRECAUTIONS, FREQUENT MONITORING WILL CONTINUE.
[2021-08-26 03:45] VITALS: BP 136/65
[2021-08-26 06:56] LABS: HEMOGLOBIN 7.6 gm/dL (14.0-18.0)
[2021-08-26 06:59] LABS: HEMATOCRIT 23.5 % (42.0-52.0); MCH 31.1 pg (26.0-34.0); MCHC 32.3 g/dL (28.0-37.0); MCV 96.1 fL (80.0-100.0); RBC 2.45 mil/uL (4.50-6.00); RDW 18.5 % (10.5-14.5)
[2021-08-26 07:13] LABS: ALBUMIN 2.2 g/dL (3.4-5.0); TOTAL BILIRUBIN 0.7 mg/dL (0.2-1.0); TOTAL PROTEIN 5.2 g/dL (6.4-8.2)
[2021-08-26 08:10] VITALS: BP 128/48
[2021-08-26 11:20] VITALS: BP 124/58
--- NOTE | 2021-08-26 14:17 | NUR ---
Chart reviewed and case discussed with the care team. Pt is sleeping this afternoon and in protective ISO for neutropenia. He has hx of AML and is currently on chemo tx. His was here earlier today and will be back later in the afternoon. Quilting Machine Operator attempted to call her x 2 with busy signal. Pt is confused, oriented x1-2 and had recent stay on SBU in April this year. The pt's and son care for him at home and have private duty caregivers 3xwkly. He has a FWW if needed at home. The pt is being treated for UTI/pneumonia and ONC if following. Will reattempt to visit with pt's spouse regarding any HH services and or dme needs. DC plan is to return home with family/familar enviornment. Possible HH referral. His pcp is Dr. Jalil Ryan Jr. Will follow. DPOA on file.
[2021-08-26 15:00] VITALS: BP 133/53
[2021-08-26 15:29] LABS: ATYPICAL LYMPHS 3 %
[2021-08-26 15:30] LABS: ANISOCYTOSIS 1+; PLATELET COUNT 48 thou/uL (150-400); PLATELET ESTIMATE DECREASED
[2021-08-26 15:52] LABS: ABSOLUTE NEUTROPHILS 0.5 thou/uL (1.4-8.2)
[2021-08-26 15:55] LABS: WBC 1.4 thou/uL (4.0-11.0)
--- NOTE | 2021-08-26 17:01 | NUR ---
ASSESSMENT CHRTED - MEDS PER NICOLE ZAMORA DIET AND FLUIDS, NO CO'S OF PAIN OR NAUSEA - AMBUALTED WITH PHYS THERAPY TODAY WITH USE OF WALKER. UP IN THE CHAIR FOR MOST OF THE DAY. INCONTINENT OF STOOL THIS SHIFT - PT VERY CONFUSED AND IMPULSIVE GETTING OUT OF CHAIR. CAN BE VERY STRONG MINDED AT TIMES NOT BEING AGREEABLE WITH ANYTHING GOING ON AND ALSO VERY PARANOID. IN TO SEE PATIENT THIS AFTERNOON - SON WILL BE IN THIS EVENING. UP IN CHAIR EATING DINNER AT THE PRESENT TIME.
[2021-08-26 19:42] VITALS: BP 138/81
[2021-08-27] VITALS (7 sets, daily range): BP systolic 121–140; BP diastolic 40–78
--- NOTE | 2021-08-27 02:34 | NUR ---
PATIENT RESTING IN BEDSIDE CHAIR WITH SON AT BEDSIDE. PATIENT IS AATO PERSON ONLY. PATIENT HAS DIFFICULTY COMPREHENDING SIMPLE COMMANDS. STATES THAT HE IS AT A [employer]. PATIENT PULLED OUT HIS IV JUST PRIOR TO HS SHIFT ARRIVAL. NEW IV STARTED TO R FA 20G. PATIENT DENIES PAIN OR NEEDS. BED ALARM AND ALL SAFETY PRECAUTIONS ARE IN PLACE. VSS. NO S/S OF DISTRESS NOTED. WILL CONTINUE TO MONITOR FOR CHANGES IN STATUS.
[2021-08-27 04:42] LABS: HEMOGLOBIN 7.3 gm/dL (14.0-18.0); MCHC 32.4 g/dL (28.0-37.0)
[2021-08-27 04:44] LABS: HEMATOCRIT 22.5 % (42.0-52.0); MCH 31.3 pg (26.0-34.0); MCV 96.4 fL (80.0-100.0); PLATELET COUNT 45 thou/uL (150-400); RBC 2.34 mil/uL (4.50-6.00); RDW 19.1 % (10.5-14.5)
[2021-08-27 04:47] LABS: WBC 1.5 thou/uL (4.0-11.0)
[2021-08-27 13:48] LABS: ABSOLUTE NEUTROPHILS 0.3 thou/uL (1.4-8.2); ANISOCYTOSIS 1+; ATYPICAL LYMPHS 7 %; METAMYELOCYTES 1 %; NUCLEATED RBCS 1 /100WBC; POIKILOCYTOSIS SLIGHT
[2021-08-27 13:49] LABS: OVALOCYTES FEW
--- NOTE | 2021-08-27 15:20 | NUR ---
spoke with regarding home health care. Referral to [facility] for review.
--- NOTE | 2021-08-27 19:23 | NUR ---
PATIENT AMBULATED WITH THE WALKER BETWEEN THE BED AND CHAIR. HE DENIED ANY PAIN OR SOA. PATIENT'S WAS AT THE BEDSIDE FOR THE ENTIRETY OF THE DAY AND HIS SON IS WITH HIS THIS EVENING. HE IS PLEASANTLY CONFUSED AND IMPULSIVE AT TIMES. BED ALARM SET AND CALL LIGHT WITHIN REACH. WILL CONTINUE TO MONITOR.
[2021-08-28 04:11] VITALS: BP 145/64
--- NOTE | 2021-08-28 04:55 | NUR ---
Assumed pt care at 1900. Pt is alert and confused. Pt is on fall precaution Pt's confused through the night. He continued to ask for his Kenisha. Assessment completed and documented. Scheduled meds administered to pt. No acuet events through the night. Continue to monitor, no further needs at this time.
[2021-08-28 05:48] LABS: HEMOGLOBIN 7.2 gm/dL (14.0-18.0)
[2021-08-28 05:50] LABS: HEMATOCRIT 22.6 % (42.0-52.0); MCH 30.8 pg (26.0-34.0); MCHC 31.7 g/dL (28.0-37.0); MCV 97.2 fL (80.0-100.0); PLATELET COUNT 49 thou/uL (150-400); RBC 2.33 mil/uL (4.50-6.00); RDW 18.8 % (10.5-14.5)
[2021-08-28 06:18] LABS: WBC 1.7 thou/uL (4.0-11.0)
[2021-08-28 08:03] VITALS: BP 121/46
[2021-08-28] MEDS ORDERED: TRAZODONE HCL100 MG PO (11:42)
[2021-08-28] MEDS ORDERED: BAYER CHEWABLE81 MG PO (11:42)
[2021-08-28] MEDS ORDERED: PEPCID20 MG PO (11:42)
[2021-08-28 11:52] VITALS: BP 117/49
[2021-08-28] MEDS ORDERED: VANCOMYCIN1 GM/2002 IV (11:53)
[2021-08-28 13:43] LABS: ABSOLUTE NEUTROPHILS 0.2 thou/uL (1.4-8.2); ANISOCYTOSIS 2+; ATYPICAL LYMPHS 5 %; METAMYELOCYTES 3 %; NUCLEATED RBCS 1 /100WBC; POIKILOCYTOSIS SLIGHT
[2021-08-28 13:44] LABS: PLATELET ESTIMATE DECREASED
[2021-08-28 15:16] VITALS: BP 106/52
[2021-08-28 16:10] VITALS: BP 135/40
--- NOTE | 2021-08-28 16:56 | NUR ---
[facility] accepting at id. Today rec info that patient needs IV infusion in home setting. Either daptomycin in outpatient or vancomycin with HH care. discussed in detail with options. Discussed 5n eval can cont IV antibitics with therapy if accepted. Discussed in detail out patient infusion may not have HH therapy at home. Discussed home health care and home infusion with possibility of infusion out of pocket cost. does NOT want skilled care. At this time arranging outpatient infusion. Sp with Dipti with infusion clinic. She plans to sp with Dr Pimentel for outpatient infusion order for daptymacin. She rec order and faxed to [facility] for order to be placed on chart. Sp with [facility] to inquire if cannot afford home infusion cost could patient have therapy at home and cont with outpatient infusion but they declined. Sp with [facility] who reports they can accomadate if documentation that cannot afford vogel of infusion cost. Sp with Martín and faxed clinical. Dapatymacin covered at 100%. Sp with again to alert no out of pocket cost for home health and home infusion. She cont to feel more comfortable with outpatient infusion. Arranged outpatient infusion with [facility] for apt time at 1300. All in agreement with plan
[2021-08-28] MEDS ORDERED: DAPTOMYCIN350 MG IV (17:24)
[2021-08-28 17:35] VITALS: BP 135/40
--- NOTE | 2021-08-28 18:18 | NUR ---
Pt was discharged from unit at 1800 by nurse in [facility]. and son took pt home. Pt remained pleasant, A&0x1 and cooperative throughout shift. VS were stable and pt was afebrile. Pt ambulated with PT once around the unit. Pt had a good appetite and finished breakfast with some encouragement and assistance. was at bedside throughout shift. Discharge teaching was provided; was told about appointements for daptomycin infusion and she expressed understanding of the information
--- NOTE | 2021-08-29 16:15 | HC ---
[facility] [place] [address] CONSULTATION Name: DAYDAY FITZGERALD Room #: 203-P [facility] IN M.R.#: [id number] Admission: 08/24/21 Attend Phys: Lisa Garza MD Discharge: 08/28/21 Date of : 37 Report #: [id number] THIS REPORT FOR: cc: Jalil Ryan Jr., MD, Jr., Samuel D. MD Elia, Manana MD ~ DATE OF SERVICE: 08/25/2021 REFERRING PHYSICIAN: Dr. Garza. REASON FOR CONSULTATION: Febrile neutropenia, AML. HISTORY OF PRESENT ILLNESS: The patient is an 85-year-old man who has history of MDS and AML under care of Dr. Snow. He was diagnosed with AML in 2019. He was treated with intravenous cytotoxic chemotherapy. Apparently, he had a good response and has been on maintenance azacitidine since that. He was doing fine until a month ago when he was admitted to the hospital. He was started on Depakote. Since then, the patient has been having worsening pancytopenia including anemia, neutropenia and thrombocytopenia. He has not had azacitidine for 4 weeks. He had a bone marrow biopsy last week to determine cause of pancytopenia. He is admitted to the hospital now after having an episode of polyuria and altered mental status. He is admitted to the hospital, he was febrile on admission, temperature 102. He had blood cultures drawn, 2 sets are positive for gram-positive cocci, most likely Staph aureus. The patient is on antibiotics. He is neutropenic and hematology consult is requested to this. He has underlying dementia. He is not very good with the history. His son is at bedside and he is giving me history. He is feeling okay. He does not have complaints of shortness of breath or cough. He is afebrile since admission. Denies diarrhea. PAST MEDICAL HISTORY: AML as above, dementia, diabetes mellitus, hypertension, coronary artery disease and hypercholesterolemia. FAMILY HISTORY: Noncontributory. SOCIAL HISTORY: He is a past smoker, but currently does not smoke. REVIEW OF SYSTEMS: Unable to obtain detailed review of systems. PHYSICAL EXAMINATION: GENERAL: Reveals chronically ill-appearing man, not in acute distress. He is covering himself by blanket and not giving me good history. VITAL SIGNS: Blood pressure 129/55, heart rate 65, temperature 98.8, respirations 17. NECK: Supple. There is no thrush. There is no supraclavicular lymphadenopathy. [facility] [address] [place] [address] CONSULTATION Name: DAYDAY FITZGERALD Room #: 203-P [facility] IN [facility].#: [id number] Admission: 08/24/21 Attend Phys: Lisa Garza MD Discharge: 08/28/21 Date of : 37 Report #: [id number] LUNGS: Clear. ABDOMEN: Soft. EXTREMITIES: No edema. SKIN: Does not reveal rash. MENTAL STATUS: The patient is oriented to himself. LABORATORY DATA: White count 1.1, hemoglobin 7.2, platelets 44, absolute neutrophil count 0.3. Sodium 143, potassium 4.3, BUN 12, creatinine 0.8. CT of head negative for acute process. Chest x-ray negative for acute infiltrates. Blood culture positive for gram-positive cocci. ASSESSMENT AND PLAN: 1. Neutropenia, possibly medications or recurrence of AML because of febrile neutropenia. I am planning to give him one dose of Neupogen. We will check CBC in the morning. 2. Anemia, consider transfusion if hemoglobin drops less than 7.0. 3. IV access. I discussed this case with Dr. Pimentel. Dr. Pimentel is monitoring. If we can remove Port-A-Cath, the patient currently is not on IV chemotherapy. I will defer decision regarding Port-A-Cath replacement to Infectious Disease and primary care team, hospitalist team. Thank you very much for allowing me to participate in care of this patient. <ELECTRONICALLY SIGNED> By: Gema Fine MD 08/29/21 1615 1629 55 Gema Fine MD /nt
== END 2021-08-28 18:31 | disposition home health service (06) | DRG 871 ==
LOC: ER 09:08 → 2N 11:22 → EROBS 11:22 → 2N 15:15
PROVIDERS: Emergency Medicine; Internal Medicine Hematology & Oncology; Specialist; ADMIT Internal Medicine; ATTEND Internal Medicine
DX: A41.1 Sepsis due to other specified staphylococcus (principal); G93.41 Metabolic encephalopathy; E43 Unspecified severe protein-calorie malnutrition; N30.00 Acute cystitis without hematuria; C92.00 Acute myeloblastic leukemia, not having achieved remission; D61.818 Other pancytopenia; D46.9 Myelodysplastic syndrome, unspecified; Z20.822 Contact with and (suspected) exposure to COVID-19; I10 Essential (primary) hypertension; E78.5 Hyperlipidemia, unspecified; I25.10 Atherosclerotic heart disease of native coronary artery without angina pectoris; E11.51 Type 2 diabetes mellitus with diabetic peripheral angiopathy without gangrene; D70.1 Agranulocytosis secondary to cancer chemotherapy; T45.1X5A Adverse effect of antineoplastic and immunosuppressive drugs, initial encounter; E78.00 Pure hypercholesterolemia, unspecified; F51.04 Psychophysiologic insomnia; G30.9 Alzheimer's disease, unspecified; F02.80 Dementia in other diseases classified elsewhere, unspecified severity, without behavioral disturbance, psychotic disturbance, mood disturbance, and anxiety; Z95.5 Presence of coronary angioplasty implant and graft; Z95.820 Peripheral vascular angioplasty status with implants and grafts; Z87.891 Personal history of nicotine dependence; Z82.49 Family history of ischemic heart disease and other diseases of the circulatory system; Z82.3 Family history of stroke; Z79.82 Long term (current) use of aspirin; Z79.899 Other long term (current) drug therapy; Y92.89 Other specified places as the place of occurrence of the external cause
CPT/HCPCS: 10081

== ENCOUNTER → 2021-08-29 | Outpatient (CLI) | payer OTHER, BC ==
[~2021-08-29] MED LIST changes: +AZACITIDINE PO; +BAYER CHEWABLE81 MG PO; +CENTRUM SILVER1 EACH PO; +DAPTOMYCIN350 MG IV; +FLOMAX0.4 MG PO; +METFORMIN HCL500 M3 PO; +PEPCID20 MG PO; +VANCOMYCIN1 GM/2002 IV; +VITAMIN B-121000 MC2 SUBLING
[2021-08-29 13:55] VITALS: BP 141/75
[2021-08-29 14:09] LABS: MCHC 31.4 g/dL (28.0-37.0); MCV 96.7 fL (80.0-100.0); WBC 3.1 thou/uL (4.0-11.0)
[2021-08-29 14:11] LABS: HEMATOCRIT 23.3 % (42.0-52.0); HEMOGLOBIN 7.3 gm/dL (14.0-18.0); MCH 30.3 pg (26.0-34.0); PLATELET COUNT 51 thou/uL (150-400); RBC 2.41 mil/uL (4.50-6.00); RDW 19.2 % (10.5-14.5)
[2021-08-29 14:20] VITALS: BP 141/75
[2021-08-29 14:34] LABS: ALBUMIN 2.4 g/dL (3.4-5.0); CALCIUM 8.2 mg/dL (8.5-10.1); CREATININE 0.9 mg/dL (0.7-1.3); POTASSIUM 3.7 mmol/L (3.5-5.1); TOTAL BILIRUBIN 0.3 mg/dL (0.2-1.0); TOTAL PROTEIN 5.7 g/dL (6.4-8.2)
[2021-08-29 16:28] LABS: ANISOCYTOSIS 1+; METAMYELOCYTES 2 %; PLATELET ESTIMATE DECREASED
== END ==
LOC: OPONC 08-28 14:41
PROVIDERS: ATTEND Specialist
DX: D70.9 Neutropenia, unspecified (principal); A49.1 Streptococcal infection, unspecified site
CPT/HCPCS: 95000

== ENCOUNTER → 2021-08-30 | Outpatient (CLI) | payer OTHER, BC ==
[2021-08-30 13:15] VITALS: BP 124/71
== END ==
LOC: OPONC 08-28 14:38
PROVIDERS: ATTEND Specialist
DX: D70.9 Neutropenia, unspecified (principal); A41.9 Sepsis, unspecified organism
CPT/HCPCS: 95000

== ENCOUNTER → 2021-08-31 | Outpatient (CLI) | payer OTHER, BC ==
[2021-08-31 08:01] VITALS: BP 114/76
[2021-08-31 09:16] VITALS: BP 124/56
== END ==
LOC: OPONC 09:36
PROVIDERS: ATTEND Specialist
DX: D70.9 Neutropenia, unspecified (principal); R50.81 Fever presenting with conditions classified elsewhere; R78.81 Bacteremia; B95.5 Unspecified streptococcus as the cause of diseases classified elsewhere
CPT/HCPCS: 95000

== ENCOUNTER → 2021-09-01 | Outpatient (CLI) | payer OTHER, BC ==
[2021-09-01 08:28] VITALS: BP 119/49
== END ==
LOC: OPONC 09:40
PROVIDERS: ATTEND Specialist
DX: D70.9 Neutropenia, unspecified (principal); R50.81 Fever presenting with conditions classified elsewhere; R78.81 Bacteremia; B95.5 Unspecified streptococcus as the cause of diseases classified elsewhere
CPT/HCPCS: 95000

== ENCOUNTER → 2021-09-02 | Outpatient (CLI) | payer OTHER, BC ==
[2021-09-02 13:15] VITALS: BP 129/45
[2021-09-02 13:31] LABS: HEMOGLOBIN 6.6 gm/dL (14.0-18.0); RBC 2.15 mil/uL (4.50-6.00)
[2021-09-02 13:36] LABS: HEMATOCRIT 20.7 % (42.0-52.0); MCH 30.8 pg (26.0-34.0); MCV 96.3 fL (80.0-100.0); RDW 18.3 % (10.5-14.5)
[2021-09-02 13:39] LABS: PLATELET COUNT 53 thou/uL (150-400); WBC 1.4 thou/uL (4.0-11.0)
--- NOTE | 2021-09-02 13:55 | NUR ---
HERE FOR DAILY IV DAPTOMYCIN. PT REPORTS FEELING OK. DENIES N/V/DIARRHEA, MUSCLE PAIN OR ANY DISCOMFORT. REPORTS PATIENT DOING WELL. HASN'T NOTICED ANY ISSUES. NO FEVER/CHILLS, NO FALLS. APPETITE GOOD. NO NEW BRUISING, NO BLEEDING NOTED. PORT REMAINS ACCESSED, LABS DRAWN WITH BRISK BLOOD RETURN. NOTED PT'S HGB NOW <7.0. NOT CERTAIN WHO IS GOING TO MANAGE IF A BLOOD TRANSFUSION IS NEEDED. PT IS SEEING HIS ONCOLOGIST AT THE [facility]. I WILL FAX LABS TO HIS OFFICE SO THEY CAN DISCUSS POSSIBILITY OF A BLOOD TRANSFUSION. I WILL GET IN TOUCH WITH DR. SELF ABOUT THE SAME WELL TO SEE WHEN HE WOULD LIKE TO SEE THE PATIENT AND WHEN THE NEXT SET OF BLOOD CULTURES WILL BE DUE. PT TOLERATED TODAY'S TRANSFUSION WITHOUT INCIDENT. REMAINS VERY PLEASANT AND IMMEDIATELY FORGETFUL. DID REPORT HAVING A GOOD BIRTHDAY YESTERDAY. DISMISSED IN STABLE CONDITION. WILL RETURN HERE AFTER HIS ONCOLOGY VISIT TOMORROW.
[2021-09-02 14:40] LABS: ALBUMIN 2.4 g/dL (3.4-5.0); CALCIUM 8.2 mg/dL (8.5-10.1); POTASSIUM 4.3 mmol/L (3.5-5.1); TOTAL BILIRUBIN 0.4 mg/dL (0.2-1.0); TOTAL PROTEIN 5.7 g/dL (6.4-8.2)
[2021-09-02 15:15] LABS: ABSOLUTE NEUTROPHILS 0.5 thou/uL (1.4-8.2); ATYPICAL LYMPHS 2 %
[2021-09-02 15:18] LABS: ANISOCYTOSIS 1+; METAMYELOCYTES 1 %
== END ==
LOC: OPONC 09-01 09:48
PROVIDERS: ATTEND Specialist
DX: D70.9 Neutropenia, unspecified (principal); R50.81 Fever presenting with conditions classified elsewhere; R78.81 Bacteremia; B95.5 Unspecified streptococcus as the cause of diseases classified elsewhere
CPT/HCPCS: 95000

== ENCOUNTER → 2021-09-03 | Outpatient (CLI) | payer OTHER, BC ==
[2021-09-03 14:10] VITALS: BP 126/46
--- NOTE | 2021-09-03 14:20 | NUR ---
HERE FOR DAILY IV DAPTOMYCIN INFUSION. REPORTS PT IS DOING WELL AT HOME. DENIES NOTING ANY FEVER/CHILLS, PAIN, N/V/DIARRHEA, FALLING OR ANY OTHER ISSUES. EATING WELL. SAW HIS ONCOLOGIST TODAY, DR. CASSIDY, WHO IS RECOMMENDING A BLOOD TRANSFUSION PER . CALLED OFFICE, SPOKE WITH YUDELKA HONG, WHO CONCURRED AND FAXED OVER AN ORDER TO TRANFUSE ONE UNIT. T&C WILL BE DRAWN AT TOMORROW'S VISIT AND TRANSFUSION SET UP FOR THURSDAY--COORDINATED WITH . SPENT TIME TALKING WITH ABOUT GOALS AND FUTURE. SHE STATES ONLY SUPPORTIVE CARE MOVING FORWARD WHICH WILL INCLUDE BLOOD TRANSFUSIONS. I CALLED OUR [employer] SPECIALIST, CHERYL, WHO PLANS TO REACH OUT TO PT'S PCP, DR. DEAN, TO GET AN ORDER TO START HOME HEALTH WITH [facility] WHICH WAS PREVIOUSLY DISCUSSED PRIOR TO PT'S DISMISSAL FROM THE HOSPITAL. PT IS NOT ELIGIBLE TO BEGIN HH SERVICES UNTIL HE COMPLETES HIS OUTPATIENT INFUSION THERAPY WHICH IS ANTICIPATED TO BE THURSDAY. PT WILL SEE DR. MITCHELL SELF HERE ON THURSDAY. TOLERATED TODAY'S INFUSION WITHOUT INCIDENT. DISMISSED IN STABLE CONDITION. SCHEDULED TO RETURN TOMORROW.
== END ==
LOC: OPONC 12:00
PROVIDERS: ATTEND Specialist
DX: D70.9 Neutropenia, unspecified (principal); R50.81 Fever presenting with conditions classified elsewhere; R78.81 Bacteremia; B95.5 Unspecified streptococcus as the cause of diseases classified elsewhere
CPT/HCPCS: 95000

== ENCOUNTER → 2021-09-04 | Outpatient (CLI) | payer OTHER, BC ==
[2021-09-04 12:19] VITALS: BP 116/40
--- NOTE | 2021-09-04 13:17 | NUR ---
HERE FOR DAILY DAPTOMYCIN. TOLERATED INFUSION WITHOUT ADVERSE RECTION. DENIES ANY SIDE EFFECTS FROM ANTIBIOTICS. DC WITH IN WHEEL CHAIR. PORT FLUSHED.
== END ==
LOC: OPONC 12:00
PROVIDERS: ATTEND Specialist
DX: D70.9 Neutropenia, unspecified (principal); R50.81 Fever presenting with conditions classified elsewhere; R78.81 Bacteremia
CPT/HCPCS: 95000

== ENCOUNTER → 2021-09-05 | Outpatient (CLI) | payer OTHER, BC ==
[2021-09-05 14:00] VITALS: BP 138/48
[2021-09-05 15:20] LABS: MCV 95.9 fL (80.0-100.0)
[2021-09-05 15:22] LABS: HEMATOCRIT 23.2 % (42.0-52.0); HEMOGLOBIN 7.5 gm/dL (14.0-18.0); MCH 30.9 pg (26.0-34.0); MCHC 32.3 g/dL (28.0-37.0); RBC 2.42 mil/uL (4.50-6.00); RDW 17.2 % (10.5-14.5)
[2021-09-05 15:29] LABS: PLATELET COUNT 51 thou/uL (150-400); WBC 1.4 thou/uL (4.0-11.0)
[2021-09-05 15:36] LABS: ALBUMIN 2.4 g/dL (3.4-5.0); POTASSIUM 4.1 mmol/L (3.5-5.1); TOTAL BILIRUBIN 0.5 mg/dL (0.2-1.0); TOTAL PROTEIN 5.6 g/dL (6.4-8.2)
[2021-09-05 15:53] LABS: ABSOLUTE NEUTROPHILS 0.5 thou/uL (1.4-8.2)
--- NOTE | 2021-09-05 15:54 | NUR ---
PT HERE FOR DAILY DAPTOMYCIN INFUSION. RECEIVED BLOOD TRANSFUSION PRIOR TO ANTIBIOTIC. TOLERATED INFUSION WITH NO COMPLICATIONS. LABS DRAWN POST-INFUSION. RESULTS FAXED TO [facility] SELF, AND [facility]. CRITICAL WBC CALLED TO DR. CASSIDY'S NURSE'S LINE. PORT DEACCESSED PER PROTOCOL. PT TO RETURN TOMORROW FOR FINAL DOSE OF DAPTOMYCIN AND TO SEE DR. SELF. LEFT UNIT IN STABLE CONDITION WITH .
[2021-09-05 15:55] LABS: ATYPICAL LYMPHS 1 %
[2021-09-05 15:56] LABS: ANISOCYTOSIS 1+
== END ==
LOC: OPONC 11:00
PROVIDERS: ATTEND Specialist
DX: D70.9 Neutropenia, unspecified (principal); R50.81 Fever presenting with conditions classified elsewhere
CPT/HCPCS: 95000

== ENCOUNTER → 2021-09-06 | Outpatient (CLI) | payer OTHER, BC ==
[2021-09-06 13:15] VITALS: BP 134/45
--- NOTE | 2021-09-06 15:51 | NUR ---
PATIENT ARRIVED FOR IV DAPTOMYCIN AND TO SEE DR. SELF. WAITED FOR TWO HOURSFOR MEDICINE TO ARRIVE FROM PHARMACY. PORT ACCESSED WITH BRISK BLOOD RETURN. DR. SELF ROUNDED ON PATIENT. DAPTOMYCIN DC'D AFTER TODAY'S DOSE. PATIENT TO HAVE BLOOD CULTURES DRAWN NEXT WEEK AT [facility]. SCRIPT GIVEN TO PATIENT. LABS WERE FAXED TO [facility] AND PCP. PORT D'ACCESSED AFTER INFUSION AND PATIENT DISCHARGED IN WHEELCHAIR TO HOME WITH .
== END ==
LOC: OPONC 12:11
PROVIDERS: ATTEND Specialist
DX: D70.9 Neutropenia, unspecified (principal); R50.81 Fever presenting with conditions classified elsewhere; R78.81 Bacteremia; B95.5 Unspecified streptococcus as the cause of diseases classified elsewhere
CPT/HCPCS: 95000